=== PATIENT | female | born 1965 ===

== ENCOUNTER 2017-07-10 09:12 | Emergency (ER) | payer SELFPAY ==
[2017-07-10 09:15] VITALS: BMI 21.6
[2017-07-10 09:16] VITALS: BP 113/74; PULSE 75; RESP 17; TEMP 98.4; O2SAT 96
[2017-07-10] MEDS ORDERED: Sodium Chloride 0.9% 1,000 ML IV STA (09:45)
--- NOTE | 2017-07-10 09:48 | ED PDOC ---
HPI: Headache Time Seen by Provider: 07/10/17 09:27 Chief Complaint (Nursing): Headache Chief Complaint (Provider): Headache History Per: Patient History/Exam Limitations: no limitations Onset/Duration Of Symptoms: Days (3) Current Symptoms Are (Timing): Still Present Additional Complaint(s): Pt. with diffuse headache and facial pain. Has nasal congestion as well. Took 1 pill of tylenol for the pain yesterday. Not worst headache of her life that started gradual. States happens off an on when she get anxious. Ongoing more frequently since not getting her klonazapam for 3 months. She changed doctors to the clinic and they won't give it to her. No numbness, tingles, weakness, dizziness, neck pain, chest pain, dyspnea, abd pain, back pain, leg pain. Past Medical History Reviewed: Nursing Documentation, Vital Signs Vital Signs: Last Vital Signs Temp 98.4 F 07/10/17 09:15 Pulse 75 07/10/17 09:15 Resp 17 07/10/17 09:15 BP 113/74 07/10/17 09:15 Pulse Ox 96 07/10/17 09:15 - Medical History PMH: Anxiety Denies: Chronic Kidney Disease - Surgical History Surgical History: Appendectomy, Cholecystectomy - Family History Family History: States: Unknown Family Hx - Social History Alcohol: None Drugs: Denies - Home Medications Home Medications: Ambulatory Orders Medication Instructions Recorded Omeprazole [Prilosec] 20 mg PO DAILY 01/15/16 - Allergies Allergies/Adverse Reactions: Allergies Allergy/AdvReac Type Severity Reaction Status Date / Time No Known Allergies Allergy Verified 07/10/17 09:39 Review of Systems ROS Statement: Except As Marked, All Systems Reviewed And Found Negative ENT: Positive for: Nose Congestion Neurological: Positive for: Headache Psych: Positive for: Anxiety Physical Exam - Reviewed Nursing Documentation Reviewed: Yes Vital Signs Reviewed: Yes - Physical Exam Appears: Positive for: Non-toxic, No Acute Distress Head Exam: Positive for: ATRAUMATIC, NORMAL INSPECTION, NORMOCEPHALIC Skin: Positive for: Normal Color, Warm, DRY Eye Exam: Positive for: EOMI, Normal appearance, PERRL ENT: Positive for: Nasal Congestion. Negative for: Pharyngeal Erythema, Tonsillar Exudate Neck: Positive for: Normal, Painless ROM, Supple Cardiovascular/Chest: Positive for: Regular Rate, Rhythm. Negative for: Edema Respiratory: Positive for: CNT, Normal Breath Sounds Gastrointestinal/Abdominal: Positive for: Normal Exam, Bowel Sounds, Soft. Negative for: Tenderness Back: Positive for: Normal Inspection. Negative for: L CVA Tenderness, R CVA Tenderness Extremity: Positive for: Normal ROM. 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 Negative for: Motor/Sensory Deficits, Aphasia, Facial Droop - Laboratory Results Result Diagrams: 07/10/17 09:50 07/10/17 09:50 Interpretation Of Abn Labs: no acute - ECG O2 Sat by Pulse Oximetry: 96 - Progress ED Course And Treament: 930: Pt. refused ct head. Aware of possible or decreased functioning form it. Aware possible bleed or infection we are missing. Pt. is aaox3. Has capacity to make decisions. No neck pain. 956: Pt. can't be found. Left before treatment complete. Was ambulatory on last view of pt. Disposition - Clinical Impression Clinical Impression: Headache - Patient ED Disposition Is Patient to be Admitted: No - Disposition Disposition: Left W/O Treatment Disposition Time: 09:58 Condition: STABLE
[2017-07-10 10:07] LABS: BASO % 0.6 % (0.0-2.0); EOS # 0.1 K/uL (0.0-0.7); EOS % 1.3 % (0.0-4.0); LYMPH # 1.5 K/uL (1.0-4.3); LYMPH % 36.5 % (20.0-40.0); MEAN CELL VOLUME 95.7 fl (81.0-99.0); MEAN CORPUSCULAR HEMOGLOBIN 32.7 pg (27.0-31.0); MEAN CORPUSCULAR HGB CONC 34.1 g/dL (33.0-37.0); MEAN PLATELET VOLUME 10.2 fl (7.2-11.7); MONO # 0.1 K/uL (0.0-0.8); MONO % 3.5 % (0.0-10.0); NEUT # 2.4 K/uL (1.8-7.0); NEUT % 58.1 % (50.0-75.0); NRBC % 0.1 % (0.0-0.0); RED CELL DISTRIBUTION WIDTH 12.9 % (11.5-14.5); WHITE BLOOD COUNT 4.2 K/uL (4.8-10.8)
[2017-07-10 10:23] LABS: BLOOD UREA NITROGEN 12 mg/dl (7-17); CALCIUM 9.6 mg/dL (8.4-10.2); CARBON DIOXIDE 25 mmol/L (22-30); CHLORIDE 105 mmol/L (98-107); GFR AFRICAN-AMERICAN > 60; GLUCOSE,RANDOM 137 mg/dL (65-105); POTASSIUM 3.9 MMOL/L (3.6-5.0); SODIUM 145 mmol/l (132-148)
== END 2017-07-10 11:40 | disposition left against medical advice (07) ==
LOC: H.ER 09:12
DX: R51 Headache (principal); F41.9 Anxiety disorder, unspecified
CPT/HCPCS: 80048; 81025; 85025; 99285; J2765; J7040